=== PATIENT | female | born 1960 ===

== ENCOUNTER 2017-11-24 05:24 | Day surgery (SDC) | payer OTHER ==
[~2017-11-24 05:24] MED LIST: ASA81 MG PO; DICLOFENAC POTA50 MG PO; NEURONTIN300 MG PO; NORTRIPTYLINE H50 MG PO; PLAQUENIL PO; SYNTHROID125 MCG PO; ZOCOR40 MG PO
== END 2017-11-24 10:50 | disposition home or self-care (01) ==
LOC: CIR.AMB 05:24
DX: M67.844 Other specified disorders of tendon, left hand (principal)